=== PATIENT | female | born 1965 | race Caucasian/White ===

== ENCOUNTER 2021-11-22 08:43 | Emergency (ER) | payer OTHER ==
[2021-11-22] MEDS ORDERED: Ketorolac Tromethamine 30 MG/ML VIAL ONE (11:57)
[2021-11-22] MEDS ORDERED: Cyclobenzaprine 10 MG TAB ONE (11:58)
[2021-11-22] MEDS ORDERED: Bacitracin 1 PK ONE (12:09)
== END 2021-11-22 12:26 | disposition home or self-care (01) ==
LOC: ERS 08:43
DX: S61.411A Laceration without foreign body of right hand, initial encounter (principal); S16.1XXA Strain of muscle, fascia and tendon at neck level, initial encounter; S40.212A Abrasion of left shoulder, initial encounter; V49.9XXA Car occupant (driver) (passenger) injured in unspecified traffic accident, initial encounter; Y92.410 Unspecified street and highway as the place of occurrence of the external cause
CPT/HCPCS: 96372; 99283; J1885